=== PATIENT | male | born 1990 | race African-American/Black ===

== ENCOUNTER 2021-03-18 11:55 | Emergency (ER) | payer OTHER ==
[~2021-03-18] VITALS: Ht 182.9 cm; Wt 79.4 kg
[~2021-03-18 11:55] MED LIST: FLEXERIL PO; NOHOMEMEDICATIONS; NORCO 5-325 TA1 EACH PO
[2021-03-18 12:14] VITALS: BP 126/71
--- NOTE | 2021-03-19 09:57 | EKG ---
[address] [place] [address] ELECTROCARDIOGRAM REPORT Name: GEMINIJASVIRNANI DANIELLA Room #: [facility]P [facility] [id number] Admission: 03/18/21 Attend Phys: Discharge: 03/18/21 Date of : 86 Report #: [id number] [facility] ED Test Date: 2021-03-18 Test Time: 12:32:34 Pat Name: NANI SINGLETARY Department: Room: Gender: M Apn: : 1990 Requested By: Katherin Pedroza Order Number: [id number] MD: Laz Steinberg Measurements Intervals Bernard Rate: 75 P: 76 [place]: 139 QRS: 38 QRSD: 103 T: 43 QT: 383 QTc: 428 Interpretive Statements Sinus rhythm RSR' in V1 or V2, right VCD or RVH ST elev, probable normal early repol pattern No previous ECG available for comparison Electronically Signed On 03-19-2021 9:57:03 [employer] by Laz Steinberg [email or web address] <ELECTRONICALLY SIGNED> By: Laz Steinberg MD, [facility] 03/19/21 [id number] Laz Steinberg MD, FACC /EPI
== END 2021-03-18 15:34 | disposition home or self-care (01) ==
LOC: ER 11:55
DX: R07.89 Other chest pain (principal); Z20.822 Contact with and (suspected) exposure to COVID-19